=== PATIENT | female | born 1985 | race Caucasian/White ===

== ENCOUNTER → 2017-02-27 | Outpatient (CLI) | payer MEDICAID ==
[~2017-02-27] MED LIST: NAPR220T95 PO; NU-I150C PO
--- NOTE | 2017-02-27 13:36 | EC ---
Study Study Date:02/27/2017 STUDY CONCLUSIONS SUMMARY - Left ventricle: The cavity size was normal. Wall thickness was normal. Systolic function was normal. The estimated ejection fraction was in the range of 55% to 60%. Wall motion was normal; there were no regional wall motion abnormalities. - Aortic valve: Valve area: 1.62cm^2 (Vmax). - Tricuspid valve: Mild regurgitation. If LV function is below 40, please consider prescribing an ACEI or ARB or document rationale for non-use. PROCEDURE DATA STUDY STATUS: Elective. Procedure: Transthoracic echocardiography. Image quality was good. Scanning was performed from the parasternal, apical, and subcostal acoustic windows. Study completion: The patient tolerated the procedure well. Transthoracic echocardiography. M-mode, complete 2D, complete spectral Doppler, and color Doppler. Patient status: Inpatient. CARDIAC ANATOMY LEFT VENTRICLE: The cavity size was normal. Wall thickness was normal. Systolic function was normal. The estimated ejection fraction was in the range of 55% to 60%. Wall motion was normal; there were no regional wall motion abnormalities. AORTIC VALVE: Trileaflet; normal thickness leaflets. Doppler: Transvalvular velocity was within the normal range. There was no stenosis. No regurgitation. Valve area: 1.62cm^2 (Vmax). Peak gradient: 11mm Hg (S). AORTA: Aortic root: The aortic root was normal in size. MITRAL VALVE: Structurally normal valve. Doppler: Transvalvular velocity was within the normal range. There was no evidence for stenosis. No regurgitation. Valve area by pressure half-time: 4.68cm^2. Peak gradient: 5mm Hg (D). LEFT ATRIUM: The atrium was normal in size. RIGHT VENTRICLE: The cavity size was normal. Wall thickness was normal. PULMONIC VALVE: Doppler: Transvalvular velocity was within the normal range. There was no evidence for stenosis. No regurgitation. TRICUSPID VALVE: Structurally normal valve. Doppler: Transvalvular velocity was within the normal range. Mild regurgitation. Peak gradient: 13mm Hg (D). PULMONARY ARTERY: The main pulmonary artery was normal-sized. Systolic pressure was within the normal range. RIGHT ATRIUM: The atrium was normal in size. PERICARDIUM: There was no pericardial effusion. SYSTEMIC VEINS: Inferior vena cava: The vessel was normal in size. BASIC MEASUREMENTS ADULT Normal Left ventricle LV internal dimension, ED, chordal level, *40.7 mm 43-52 PLAX LV internal dimension, ES, chordal level, 26.2 mm 23-38 PLAX Fractional shortening, chordal level, PLAX 36 % >29 LV posterior wall thickness, ED 8.09 mm IVS/LVPW ratio, ED 1.09 <1.3 Ventricular septum Septal thickness, ED 8.78 mm Aortic valve Leaflet separation 17 mm 15-26 Left atrium Anterior-posterior dimension 30 mm Right ventricle RV internal dimension, ED, PLAX 27.2 mm 19-38 BASIC MEASUREMENTS ADULT Normal Aortic valve Leaflet separation 17 mm 15-26 Aorta Root diameter, ED 23 mm 20-37 DOPPLER MEASUREMENTS ADULT Normal Aortic valve Peak velocity, S 163 cm/s Peak gradient, S 11 mm Hg Valve area, Vmax 1.62 cm^2 Mitral valve Peak E-wave velocity 116 cm/s Peak A-wave velocity 62.2 cm/s Pressure half-time 47 ms Peak gradient, D 5 mm Hg Peak E/A ratio 1.9 Valve area, pressure half-time 4.68 cm^2 Tricuspid valve Peak gradient, D 13 mm Hg Maximal inflow velocity 182 cm/s Systemic veins Estimated CVP 10 mm Hg Pulmonic valve Peak velocity, S 105 cm/s LEGEND: Mean values are shown as u=mean value. Asterisk (*) hawkins values outside specified normal range. Prepared and signed by Juan Antonio Gomez [id number]
== END ==
LOC: HECH 07:27
PROVIDERS: ATTEND Internal Medicine Geriatric Medicine
DX: R07.9 Chest pain, unspecified (principal)
CPT/HCPCS: 93306

== ENCOUNTER → 2017-09-30 | Day surgery (SDC) | payer MEDICAID ==
[~2017-09-30] MED LIST changes: +ACETAMINOPHEN/HYDROcodone 325 MG/7.5 MG TAB ONE; +FERR325T18 PO; +KETOROLAC TROMETHAMINE 30 MG/ML (IVP) VIAL IV PUSH ONE; +LACTATED RINGER'S 1000 ML INJ 1,000 ML ONE; +MEPERIDINE HCL 25 MG/ML VIAL ONE; +MIDAZOLAM HCL 2 MG/2 ML VIAL ONE; -NAPR220T95 PO; -NU-I150C PO; +ONDANSETRON HCL 4 MG/2 ML VIAL IV PUSH ONE; +PROPOFOL 200 MG/20 ML AMP IV ONE; +SERT-132 PO; +ceFAZolin 2 GM PREMIX 50 ML ONE
[2017-09-30 10:16] LABS: HEMATOCRIT 33.2 % (35.0-46.0); REVIEW FLAG FINAL
--- NOTE | 2017-09-30 14:39 | MP ---
cc: MEGHAN DELEON M.D. DATE OF SURGERY: 09/30/2017 PREOPERATIVE DIAGNOSIS Patient with significant menometrorrhagia with chronic anemia due to the above. PROCEDURE Exam under anesthesia, fractional D&C, polypectomy, NovaSure endometrial ablation. POSTOPERATIVE DIAGNOSIS Patient with significant menometrorrhagia with chronic anemia due to the above. SURGEON Dr. Deleon. ANESTHESIA General LMA. ESTIMATED BLOOD LOSS 75 ccs. DRAINS None. OPERATIVE FINDINGS The patient had endometrial cavity that was symmetrical. There was a posterior endometrial polyp that was approximately 1-1/2 x 2 cm. The endometrial surface itself was intact. There is no perforation. Tissue specimens were sent as endocervical curettings and endometrial curettings with polyp. NovaSure measurement was 6.0, cavity length 4.8 width. The generator measured 158 [id number] on the NovaSure. DESCRIPTION OF PROCEDURE The patient was then taken to the operating room, underwent general anesthesia with LMA placement. She was carefully positioned in dorsolithotomy position using candy-cane stirrups on her lower extremities. She had sequentials placed for VTE prophylaxis. She was prepped and draped. Time-out was conducted. The patient received appropriate prophylactic antibiotic, given Ancef 2 grams. The patient was examined after she was prepped and draped and documenting the timeout. The cervix was identified in the midline with a bivalve retractor, secured with a single-tooth tenaculum anteriorly and then the endocervix was sampled with a box curette. Uterine sound was then placed to about 8 cm. The cervix was then dilated to accommodate a 5 mm rigid hysteroscope which was used to examine the cavity. Findings were described above. Simple polyp forceps and curette was used to remove the endometrial tissue. This was sent in formalin. The NovaSure device was then used and the generator was complete. Electrodesiccation of the cavity was documented. Replacement of the hysteroscope postablation revealed a complete electrodesiccation without difficulty, no perforation. At the completion of the case the tenaculum site was noted to be oozing, simple pressure was unsuccessful and a suture of 2-0 Vicryl is used to secure the anterior cervical lip from bleeding. The final count was correct and the patient was then taken to the recovery room on room air. MD ROHAN Ball/TLL /1:06 PM /2:28 PM
== END | disposition home or self-care (01) ==
LOC: ESDC 09:42
PROVIDERS: ATTEND Obstetrics & Gynecology
DX: N92.1 Excessive and frequent menstruation with irregular cycle (principal); D64.9 Anemia, unspecified
CPT/HCPCS: 00952; 36415; 58563; 85014; 85018; 88305; J0690; J1885; J2175; J2250; J2405; J3010; J7120